=== PATIENT | female | born 1980 | race Caucasian/White ===

== ENCOUNTER 2017-06-10 17:53 | Emergency (ER) | payer SELFPAY ==
[2017-06-10 19:00] LABS: URINE HCG POC HCG NEGATIVE (Negative)
[2017-06-10] MEDS: ONDANSETRON PF 4 MG/2 ML VIAL. IV ×2 (19:45)
[2017-06-10] MEDS: IV NORMAL SALINE 1000ML BAG 1,000 ML IV ×2 (19:49)
[2017-06-10] MEDS: fentaNYL PF VIAL 100 MCG/2 ML VIAL IV ×2 (19:51)
[2017-06-10 19:52] LABS: ADD MAN DIFF? NO
[2017-06-10] MEDS: FAMOTIDINE 20 MG/2 ML VIAL IVP ×2 (19:54)
[2017-06-10 19:55] LABS: BASO % 1 % (0-3); EOS # 0.2 x10^3/uL (0.0-0.7); EOS % 3 % (0-3); HEMATOCRIT 40.1 % (36.0-47.0); HEMOGLOBIN 13.7 g/dL (12.0-15.5); LYMPH # 2.9 x10^3/uL (1.0-4.8); LYMPH % 33 % (24-48); MEAN CORPUSCULAR HEMOGLOBIN 30 pg (25-35); MEAN CORPUSCULAR HGB CONC 34 g/dL (31-37); MEAN CORPUSCULAR VOLUME 87 fL (79-100); MONO # 0.5 x10^3/uL (0.0-1.1); MONO % 6 % (0-9); NEUT % 58 % (31-73); PLATELET COUNT 235 x10^3/uL (140-400); RED BLOOD COUNT 4.59 x10^6/uL (3.50-5.40); RED CELL DISTRIBUTION WIDTH 12.8 % (11.5-14.5); WHITE BLOOD COUNT 8.6 x10^3/uL (4.0-11.0)
[2017-06-10 19:57] LABS: BILIRUBIN,URINE NEGATIVE (NEG); CLARITY,URINE CLOUDY; COLOR,URINE YELLOW; GLUCOSE,URINE NEGATIVE (NEG); NITRITE,URINE NEGATIVE (NEG); PH,URINE 7.5; PROTEIN,URINE NEGATIVE (NEG-TRACE)
[2017-06-10 20:04] LABS: ANION GAP 9 (6-14); BLOOD UREA NITROGEN 15 mg/dL (7-20); BUN/CREATININE RATIO 15 (6-20); CALCIUM 8.4 mg/dL (8.5-10.1); CARBON DIOXIDE 27 mmol/L (21-32); CHLORIDE 102 mmol/L (98-107); GFR 63.5; GLUCOSE 88 mg/dL (70-99); POTASSIUM 4.1 mmol/L (3.5-5.1); SODIUM 138 mmol/L (136-145)
[2017-06-10 20:06] LABS: BACTERIA,URINE FEW /HPF (0-FEW); SQUAMOUS EPITHELIAL CELL,UR FEW /LPF; WBC,URINE OCC /HPF (0-4)
[2017-06-10 20:07] LABS: AMORPHOUS SEDIMENT,UR PRESENT /HPF
[2017-06-10 20:10] LABS: ALBUMIN 3.8 g/dL (3.4-5.0); ALBUMIN/GLOBULIN RATIO 1.1 (1.0-1.7); ALK PHOS 34 U/L (46-116); ALT (SGPT) 13 U/L (14-59); AST (SGOT) 12 U/L (15-37); LIPASE 147 U/L (73-393); TOTAL BILIRUBIN 0.2 mg/dL (0.2-1.0); TOTAL PROTEIN 7.4 g/dL (6.4-8.2)
[2017-06-10] MEDS: IOHEXOL 300 MG/ML 100ML VIAL. IV ×2 (20:45)
== END 2017-06-10 22:19 | disposition home or self-care (01) ==
LOC: ER 17:53
DX: R10.31 Right lower quadrant pain (principal); R63.0 Anorexia; F12.10 Cannabis abuse, uncomplicated; Z87.442 Personal history of urinary calculi; Z68.1 Body mass index [BMI] 19.9 or less, adult; Z88.4 Allergy status to anesthetic agent; Z91.040 Latex allergy status; Z88.5 Allergy status to narcotic agent; Z88.8 Allergy status to other drugs, medicaments and biological substances; Z91.048 Other nonmedicinal substance allergy status
CPT/HCPCS: 36415; 74177; 80053; 81001; 81025; 83690; 85025; 96361; 96374; 96375; 99285-25; J3010; J7030; Q9967; S0028

== ENCOUNTER 2017-08-30 08:28 | Emergency (ER) | payer BC ==
[2017-08-30 09:06] LABS: URINE HCG POC HCG NEGATIVE (Negative)
[2017-08-30 09:08] LABS: BILIRUBIN,URINE NEGATIVE (NEG); CLARITY,URINE CLEAR; COLOR,URINE YELLOW; GLUCOSE,URINE NEGATIVE (NEG); NITRITE,URINE NEGATIVE (NEG); PROTEIN,URINE NEGATIVE (NEG-TRACE); UROBILINOGEN,URINE 0.2 mg/dL (0.2 mg/dL)
[2017-08-30 09:15] LABS: BARBITURATES NEG (NEG); BENZODIAZEPINES NEG (NEG); CANNABINOIDS NEG (NEG); COCAINE NEG (NEG); METHADONE NEG (NEG); OPIATES NEG (NEG); PHENCYCLIDINE NEG (NEG)
[2017-08-30 09:20] LABS: AMPHETAMINE/METHAMPHETAMINE NEG (NEG); ETHANOL, URINE NEG (NEG)
[2017-08-30 09:23] LABS: BACTERIA,URINE 0 /HPF (0-FEW); SQUAMOUS EPITHELIAL CELL,UR MOD /LPF; WBC,URINE OCC /HPF (0-4)
[2017-08-30 09:26] LABS: TROPONINI < 0.017 ng/mL (0.000-0.055)
== END 2017-08-30 10:56 | disposition home or self-care (01) ==
LOC: ER 08:28
DX: S20.229A Contusion of unspecified back wall of thorax, initial encounter (principal); M54.5 Low back pain; R42 Dizziness and giddiness; G89.29 Other chronic pain; F12.10 Cannabis abuse, uncomplicated; Z87.442 Personal history of urinary calculi; Z91.040 Latex allergy status; Z88.5 Allergy status to narcotic agent; Z91.048 Other nonmedicinal substance allergy status; W20.8XXA Other cause of strike by thrown, projected or falling object, initial encounter; Y93.89 Activity, other specified; Y92.89 Other specified places as the place of occurrence of the external cause; Y99.8 Other external cause status
CPT/HCPCS: 36415; 70450; 72125; 72128; 72131; 80307; 81001; 81025; 84484; 93005; 99285-25

== ENCOUNTER → 2017-12-12 | Outpatient (CLI) | payer BC ==
[2017-10-26 15:30] VITALS: BP 100/74
[~2017-12-12] MED LIST: DICY10AM IM; MECL25TA3 PO; SULF1TAB24 PO
[2017-12-12 12:01] LABS: BARBITURATES NEG (NEG); BENZODIAZEPINES NEG (NEG); CANNABINOIDS NEG (NEG); COCAINE NEG (NEG); METHADONE NEG (NEG); OPIATES NEG (NEG); PHENCYCLIDINE NEG (NEG)
[2017-12-12 12:02] LABS: BASO % 1 % (0-3); EOS # 0.1 x10^3/uL (0.0-0.7); EOS % 2 % (0-3); HEMOGLOBIN 13.2 g/dL (12.0-15.5); LYMPH # 2.1 x10^3/uL (1.0-4.8); LYMPH % 32 % (24-48); MEAN CORPUSCULAR HEMOGLOBIN 31 pg (25-35); MEAN CORPUSCULAR HGB CONC 35 g/dL (31-37); MEAN CORPUSCULAR VOLUME 89 fL (79-100); MONO # 0.4 x10^3/uL (0.0-1.1); MONO % 5 % (0-9); NEUT # 3.9 x10^3uL (1.8-7.7); NEUT % 60 % (31-73); PLATELET COUNT 217 x10^3/uL (140-400); RED BLOOD COUNT 4.29 x10^6/uL (3.50-5.40); RED CELL DISTRIBUTION WIDTH 12.3 % (11.5-14.5); WHITE BLOOD COUNT 6.6 x10^3/uL (4.0-11.0)
[2017-12-12 12:08] LABS: AMPHETAMINE/METHAMPHETAMINE NEG (NEG)
[2017-12-12 12:13] LABS: ALBUMIN 3.9 g/dL (3.4-5.0); ALBUMIN/GLOBULIN RATIO 1.2 (1.0-1.7); CALCIUM 8.5 mg/dL (8.5-10.1); CREATININE 0.8 mg/dL (0.6-1.0); GFR 82.1; POTASSIUM 3.9 mmol/L (3.5-5.1); TOTAL BILIRUBIN 0.5 mg/dL (0.2-1.0); TOTAL PROTEIN 7.2 g/dL (6.4-8.2)
== END | disposition home or self-care (01) ==
LOC: LAB 11:25
PROVIDERS: ATTEND Psychiatry & Neurology Neurology
DX: R52 Pain, unspecified (principal); G43.909 Migraine, unspecified, not intractable, without status migrainosus; Z87.442 Personal history of urinary calculi; Z68.1 Body mass index [BMI] 19.9 or less, adult; Z88.8 Allergy status to other drugs, medicaments and biological substances; Z88.5 Allergy status to narcotic agent; Z88.4 Allergy status to anesthetic agent
CPT/HCPCS: 36415; 80053; 80307; 82550; 82607; 84443; 85025; 86141; G0479

== ENCOUNTER → 2018-01-17 | Outpatient (CLI) | payer BC ==
[2017-10-26 15:30] VITALS: BP 100/74
[2018-01-17 19:14] LABS: RHEUMATOID FACTOR <10.0 IU/mL (0.0-13.9)
[2018-01-20 15:24] LABS: ANA INTERP Negative (.)
== END | disposition home or self-care (01) ==
LOC: LAB 11:10
PROVIDERS: ATTEND Psychiatry & Neurology Neurology
DX: R52 Pain, unspecified (principal); G43.909 Migraine, unspecified, not intractable, without status migrainosus; Z87.442 Personal history of urinary calculi; Z88.5 Allergy status to narcotic agent; Z88.4 Allergy status to anesthetic agent; Z88.8 Allergy status to other drugs, medicaments and biological substances
CPT/HCPCS: 36415; 82550; 86038; 86431

== ENCOUNTER → 2019-06-02 | Outpatient (CLI) | payer BC ==
[2017-10-26 15:30] VITALS: BP 100/74
[~2019-06-02] MED LIST changes: +MECL-75 PO; -MECL25TA3 PO
--- NOTE | 2019-06-02 16:40 | KCIC ---
Bilateral diagnostic digital mammograms with 3-D tomosynthesis: Reason for examination: Diffuse tenderness for years. Baseline exam. Bilateral mammograms in CC and oblique projections were obtained with 2-D imaging and 3-D tomosynthesis imaging on a Siemens Inspiration unit and reviewed on the workstation. Interpretation was made with the benefit of CAD. The skin and nipples show no abnormalities. No abnormal axillary lymph nodes are seen. The breast parenchyma is heterogeneously dense. (Breast density: Category C.) There is a circumscribed nodule at the 3:00 B position of the left breast consistent with an intramammary lymph node. There are no other dominant masses, suspicious calcifications or architectural distortion. Impression: No evidence of malignancy. Ultrasound to follow. Your patient's mammogram demonstrates that she has dense breast tissue (breast density category C or D), which could hide abnormalities, and if she has other risk factors for breast cancer that have been identified, she might benefit from supplemental screening tests that may be suggested by you as her ordering physician. Dense breast tissue, in and of itself, is a relatively common condition. Therefore, this information is not provided to cause undue concern, but rather to raise your awareness and to promote discussion with your patient regarding the presence of other risk factors, in addition to dense breast tissue. Your patient's mammography results will be sent to her. BI-RAD Category 0: Incomplete. Needs additional imaging evaluation. Bilateral breast ultrasound: Ultrasound examination was performed of the breasts and axilla bilaterally. In the right breast at the 12:00 position 4 cm from the nipple, there is a hypoechoic circumscribed lesion measuring 6.2 mm in greatest dimension which probably represents a small complicated cyst or fibroadenoma. In the 6:00 position 3 cm from the nipple, there is a hypoechoic circumscribed lesion measuring 4.8 mm in greatest dimension also probably representing a complicated cyst or fibroadenoma. No suspicious nodules are seen. No abnormal appearing lymph nodes are seen in the axilla. The left breast shows a 7.7 mm hypoechoic circumscribed lesion consistent with a probable fibrocystic lesion of intramammary lymph node. At the 4:00 position 7 cm from the nipple, there is also a 1.1 cm intramammary lymph node which corresponds to the area of mammographic concern. No suspicious nodules are seen. No abnormal appearing lymph nodes are seen in the axilla. IMPRESSION: Benign-appearing nodules seen bilaterally consistent with complicated cysts or fibroadenoma and intramammary lymph nodes. No suspicious-appearing lesions are seen. Recommend 6 month follow-up with bilateral breast ultrasound. BI-RADS Category 3: Probably Benign. "Our facility is accredited by the [employer] Mammography Program." This patient's information has been entered into a reminder system for the patient to be notified with the results of her examination and a target date for the next mammogram. Electronically signed by: Monica Vieira MD (06/02/2019 4:37 PM) [id number]
== END | disposition home or self-care (01) ==
LOC: KCIC MAMMO 09:23
PROVIDERS: ATTEND Nurse Practitioner Family
DX: N64.89 Other specified disorders of breast (principal); N64.4 Mastodynia
CPT/HCPCS: 76641; 77066; G0279; 77062

== ENCOUNTER → 2020-06-23 | Outpatient (CLI) | payer BC ==
[2017-10-26 15:30] VITALS: BP 100/74
--- NOTE | 2020-06-23 16:02 | KCIC ---
EXAM: 3 Views Right Shoulder DATE: 06/23/2020 12:42 PM INDICATION: Reason: Shoulder pain, decreased ROM, pt fell 06/18/20 / Spl. Instructions: / History: COMPARISON: No Prior FINDINGS: There is no evidence for acute fracture or dislocation. AC joint is congruent. Mild lateral downslopi ng of the distal acromion. Humeral head is not high riding. IMPRESSION: 1. No acute fracture or dislocation. Electronically signed by: David Person MD (06/23/2020 3:59 PM) [id number]
--- NOTE | 2020-06-23 16:25 | KCIC ---
EXAMINATION: XR RT WRIST 3VIEWS CLINICAL HISTORY: Reason: Wrist pain, decreased ROM, pt fell 06/18/20 TECHNIQUE: XR RT WRIST 3VIEWS Number of Images/Views: 3 COMPARISON: None FINDINGS: Joint spaces and alignment maintained. No acute fracture. Ulnar negative variance. No focal soft tiss ue swelling. IMPRESSION: No acute osseous abnormality right wrist. Ulnar negative variance. Electronically signed by: Carl Topete DO (06/23/2020 4:22 PM) [id number]
== END ==
LOC: KCIC 12:38
PROVIDERS: ATTEND Nurse Practitioner Family
DX: M25.531 Pain in right wrist (principal); M25.511 Pain in right shoulder
CPT/HCPCS: 73030; 73110

== ENCOUNTER → 2020-08-03 | Outpatient (CLI) | payer BC ==
[2017-10-26 15:30] VITALS: BP 100/74
--- NOTE | 2020-08-04 02:20 | RAD ---
US EXT NON VASC RIGHT History:Reason: RT POSTERIOR WRIST LUMP; GANGLION CYST RT POSTERIOR WRIST / Spl. Instructions: / His tory: Comparison: None Technique: Sonographic examination of the right posterior wrist soft tissues Findings: No mass or fluid collection. No cyst. Impression: 1. No ultrasound evidence of abnormality within the region the patient's palpable concern. If persis tent clinical concern, MRI can better evaluate. Electronically signed by: Jason Simms DO (08/04/2020 2:17 AM) [facility]
== END ==
LOC: US 15:04
PROVIDERS: ATTEND Nurse Practitioner Family
DX: M67.431 Ganglion, right wrist (principal)
CPT/HCPCS: 76881

== ENCOUNTER → 2021-09-20 | Outpatient (CLI) | payer BC ==
[2017-10-26 15:30] VITALS: BP 100/74
--- NOTE | 2021-09-20 12:43 | CARD ---
MR#: [id number] Date of Study: 09/20/2021 Ordering Physician: LORRIE SEGUNDO, Referring Physician: LORRIE SEGUNDO, Tech: Heide Harrell [facility] APPROVED REPORT EXAM: Two-dimensional and M-mode echocardiogram with Doppler and color Doppler. Other Information Quality : AverageHR: 71bpm Rhythm : NSR INDICATION Palpitations Chest Pain 2D DIMENSIONS RVDd3.0 (2.9-3.5cm)Left Atrium(2D)3.2 (1.6-4.0cm) IVSd0.5 (0.7-1.1cm)Aortic Root(2D)2.5 (2.0-3.7cm) LVDd5.3 (3.9-5.9cm)LVOT Diameter1.7 (1.8-2.4cm) PWd0.7 (0.7-1.1cm)LVDs2.8 (2.5-4.0cm) FS (%) 47.4 %SV104.5 ml Aortic Valve AoV Peak Mike.125.8cm/sAoV VTI27.8cm AO Peak GR.6.3mmHgLVOT Peak Mike.105.0cm/s AO Mean GR.3mmHgAVA (VMAX)1.85cm2 Mitral Valve MV E Ljwublsv21.8cm/sMV DECEL HSHM349ve MV A Ikjjwgtt22.5cm/sE/A Ratio1.3 LEFT VENTRICLE The left ventricle is normal size. There is normal left ventricular wall thickness. The left ventricu lar systolic function is normal. LV ejection fraction of 55 to 60%. There is normal LV segmental wall motion. The left ventricular diastolic function and filling is normal for age. RIGHT VENTRICLE The right ventricle is normal size. There is normal right ventricular wall thickness. The right ventr icular systolic function is normal. ATRIA The left atrium size is normal. The right atrium size is normal. The interatrial septum is intact wit h no evidence for an atrial septal defect or patent foramen ovale as noted on 2-D or Doppler imaging. AORTIC VALVE The aortic valve is normal in structure and function. Doppler and Color Flow revealed no significant aortic regurgitation. There is no significant aortic valvular stenosis. MITRAL VALVE The mitral valve is normal in structure and function. There is no evidence of mitral valve prolapse. There is no mitral valve stenosis. Doppler and Color-flow revealed trace mitral regurgitation. TRICUSPID VALVE The tricuspid valve is normal in structure and function. Doppler and Color Flow revealed trace tricus pid valve regurgitation. Estimated PAP 20 mmHg. There is no tricuspid valve stenosis. PULMONIC VALVE The pulmonary valve is normal in structure and function. Doppler and Color Flow revealed mild pulmoni c valvular regurgitation. GREAT VESSELS The aortic root is normal in size. The ascending aorta is normal in size. The IVC is normal in size a nd collapses >50% with inspiration. PERICARDIAL EFFUSION There is no evidence of significant pericardial effusion. Critical Notification Critical Value: No <Conclusion> The left ventricle is normal size. The left ventricular systolic function is normal. LV ejection fraction of 55 to 60%. Doppler and Color Flow revealed no significant aortic regurgitation. There is no significant aortic valvular stenosis. Doppler and Color-flow revealed trace mitral regurgitation. Doppler and Color Flow revealed trace tricuspid valve regurgitation. Estimated PAP 20 mmHg. Signed by : Arsh Cardozo MD Electronically Approved : 09/20/2021 12:43:17
== END ==
LOC: ECHO 10:44
PROVIDERS: ATTEND Internal Medicine Cardiovascular Disease
DX: I37.1 Nonrheumatic pulmonary valve insufficiency (principal); R07.9 Chest pain, unspecified
CPT/HCPCS: 93306; C8929